=== PATIENT | female | born 1970 | race Two or more races ===

== ENCOUNTER → 2017-01-16 | Outpatient (CLI) | payer OTHER ==
[~2017-01-16] MED LIST: IOPAMIDOL (ISOVUE-300) 100 ML BTL ONE
== END ==
LOC: FIMAGING 14:22
PROVIDERS: ATTEND Otolaryngology
DX: Z13.29 Encounter for screening for other suspected endocrine disorder (principal); J34.1 Cyst and mucocele of nose and nasal sinus; H92.02 Otalgia, left ear
CPT/HCPCS: Q9967